=== PATIENT | male | born 1965 | race Caucasian/White ===

== ENCOUNTER 2018-09-27 23:04 | Inpatient (IN) | payer MEDICARE, MEDICAID ==
[~2018-09-27] VITALS: Ht 175.3 cm; Wt 89.5 kg
--- NOTE | ~2018-09-27 | MORECARE ---
CASE MANAGEMENT DISCHARGE SUMMARY PATIENT: REFUGIO NELSON UNIT: [id number] ADM DATE: 09/27/18 AGE: 53 : 67 SEX: M ROOM/BED: D.2209 AUTHOR: MILLYDOC PHYSICIAN: REFERRING PHYSICIAN: SEBAS ARREOLA MD DATE OF SERVICE: 10/03/18 Discharge Plan Patient Name: REFUGIO NELSON Facility: [facility]:[place] : 1965 Planned Disposition: Home Anticipated Discharge Date: Discharge Date: 10/01/2018 Expected LOS: 0 Initial Reviewer: [email or web address] Initial Review Date: 09/28/2018 Generated: 10/03/18 1:32 pm Comments DCP- Discharge Planning Updated by [email or web address]: Machelle Vigil on 09/30/18 10:[address] Patient Name: REFUGIO NELSON Admission Status: Elective Accout number: [id number] Admission Date: 09-27-2018 : 1965 Admission Diagnosis: Attending: SEBAS ARREOLA Current LOS: 3 Anticipated DC Date: Planned Disposition: Home Primary Insurance: [facility] MEDICARE SOLUTIONS Discharge Planning Comments: CM met with patient to assess discharge planning needs. He is a transfer for a higher level of care from [place]. He stated that he lives independently with his girlfriend where he plans to return at dc. He stated that he would have a ride home. He does have a nebulizer at home. He states his home is safe to return and denies any other needs at this time. CM will continue to follow and assist with dc planning as needed Screw Machine Adjuster Automatic: Machelle Vigil DCPIA - Discharge Planning Initial Assessment Updated by [email or web address]: Machelle Vigil on 09/30/18 11:34 am * Is the patient Alert and Oriented? Yes * How many steps to enter\exit or inside your home? * PCP TARA ([place]) * [facility] [place] * Preadmission Environment Home with Family * ADLs Independent * Equipment Nebulizer * List name and contact numbers for known caregivers / representatives who currently or will assist patient after discharge: MADISYN PARISH [phone] * Verbal permission to speak to the caregivers and representatives has been obtained from the patient. N/A * Community resources currently utilized None * Additional services required to return to the preadmission environment? No * Can the patient safely return to the preadmission environment? Yes * Has this patient been hospitalized within the prior 30 days at any hospital? No Last DP export: 09/30/18 10:41 Patient Name: REFUGIO NELSON Page 14646 at 1232 All edits/amendments must be made on the electronic document DICTATION DATE: 10/03/18 1231 TRANSITION COACH: ANGELINE 10/03/18 1231 RPT#: [id number] DC DATE:10/01/18 STATUS: DIS IN [facility] [address] [place] [address] END OF REPORT
--- NOTE | ~2018-09-27 | MORECARE ---
CASE MANAGEMENT DISCHARGE SUMMARY PATIENT: REFUGIO NELSON UNIT: [id number] ADM DATE: 09/27/18 AGE: 53 : 67 SEX: M ROOM/BED: D.2209 AUTHOR: MILLYDOC PHYSICIAN: REFERRING PHYSICIAN: SEBAS ARREOLA MD DATE OF SERVICE: 09/30/18 Discharge Plan Patient Name: REFUGIO NELSON Facility: [facility]:[place] : 1965 Planned Disposition: Home Anticipated Discharge Date: Discharge Date: Expected LOS: Initial Reviewer: [email or web address] Initial Review Date: 09/28/2018 Generated: 09/30/18 12:41 pm Comments DCP- Discharge Planning Updated by [email or web address]: Machelle Vigil on 09/30/18 10:[address] Patient Name: REFUGIO NELSON Admission Status: Elective Accout number: [id number] Admission Date: 09-27-2018 : 1965 Admission Diagnosis: Attending: SEBAS ARREOLA Current LOS: 3 Anticipated DC Date: Planned Disposition: Home Primary Insurance: [facility] MEDICARE SOLUTIONS Discharge Planning Comments: CM met with patient to assess discharge planning needs. He is a transfer for a higher level of care from [place]. He stated that he lives independently with his girlfriend where he plans to return at dc. He stated that he would have a ride home. He does have a nebulizer at home. He states his home is safe to return and denies any other needs at this time. CM will continue to follow and assist with dc planning as needed Ip Counsel: Machelle Vigil DCPIA - Discharge Planning Initial Assessment Updated by [email or web address]: Machelle Vigil on 09/30/18 11:34 am * Is the patient Alert and Oriented? Yes * How many steps to enter\exit or inside your home? * PCP [facility] ([place]) * Pharmacy [facility] [place] * Preadmission Environment Home with Family * ADLs Independent * Equipment Nebulizer * List name and contact numbers for known caregivers / representatives who currently or will assist patient after discharge: MADISYN PARISH [phone] * Verbal permission to speak to the caregivers and representatives has been obtained from the patient. N/A * Community resources currently utilized None * Additional services required to return to the preadmission environment? No * Can the patient safely return to the preadmission environment? Yes * Has this patient been hospitalized within the prior 30 days at any hospital? No Patient Name: REFUGIO NELSON Page [id number] at 1142 All edits/amendments must be made on the electronic document DICTATION DATE: 09/30/18 114 PLASTIC PRODUCTION MACHINE SETTER: ANGELINE 09/30/18 1141 RPT#: [id number] DC DATE: STATUS: ADM IN [facility] [address] [place] [address] END OF REPORT
[2018-09-27] MEDS ORDERED: DEPAKOTE500 MG PO (23:26)
[2018-09-27] MEDS ORDERED: PAXIL20 MG PO (23:37)
[2018-09-27] MEDS ORDERED: SEROQUEL25 MG PO (23:37)
[2018-09-27] MEDS ORDERED: IPRAT-ALBUT 0.5-3 ML UPD (23:40)
[2018-09-27] MEDS ORDERED: ALBUTEROL2.5 MG/3 M INH (23:40)
[2018-09-27] MEDS ORDERED: CARAFATE1 G PO (23:42)
[2018-09-27] MEDS ORDERED: GABAPENTIN100 MG PO (23:43)
[2018-09-28] VITALS: BP 114/84
[2018-09-28 01:21] VITALS: Ht 175.3 cm; Wt 89.5 kg
[2018-09-28 04:00] VITALS: BP 108/66
[2018-09-28 06:53] LABS: HEMATOCRIT 39.6 % (42.0-54.0); HEMOGLOBIN 12.9 g/dL (13.5-17.5); MCH 27.9 pg (26.0-34.0); MCHC 32.6 g/dL (31.0-37.0); MCV 85.5 fL (80.0-100.0); MEAN PLATELET VOLUME 10.6 fL (7.4-10.4); PLATELET COUNT 264 10x3/uL (130-400); RBC 4.63 10x6/uL (4.20-6.10); RDW 13.5 % (11.5-14.5); WBC 6.6 10x3/uL (4.8-10.8)
[2018-09-28 07:20] LABS: ALBUMIN 3.2 g/dL (3.4-5.0); ANION GAP 13.8 mmol/L (8-16); BILIRUBIN - TOTAL 0.49 mg/dL (0.2-1.3); CALCIUM 9.4 mg/dL (8.5-10.1); CARBON DIOXIDE 29.6 mmol/L (21.0-32.0); CREATININE - SERUM 1.4 mg/dL (0.6-1.3); POTASSIUM - SERUM 4.4 mmol/L (3.5-5.1); PROTEIN - SERUM 7.5 g/dL (6.4-8.2)
[2018-09-28 07:58] LABS: LYMPHOCYTES 13 % (15-50); MONOCYTES 7 % (2-11); NEUTROPHILS 80 % (40-80); PLATELET ESTIMATE NORMAL
[2018-09-28 08:30] VITALS: BP 108/65
[2018-09-28] MEDS ORDERED: SINGULAIR10 MG PO (11:12)
[2018-09-28] MEDS ORDERED: VOLTAREN75 MG PO (11:13)
[2018-09-28] MEDS ORDERED: ZYRTEC10 MG PO (11:14)
[2018-09-28] MEDS ORDERED: OMEPRAZOLE40 MG PO (11:15)
[2018-09-28] MEDS ORDERED: NORVASC5 MG PO (11:16)
[2018-09-28] MEDS ORDERED: PROSCAR5 MG PO (11:16)
[2018-09-28] MEDS ORDERED: ASPIRIN81 MG PO (11:17)
[2018-09-28 14:15] VITALS: BP 110/71
[2018-09-28 16:00] VITALS: BP 113/73
[2018-09-28 19:47] VITALS: BP 120/63
[2018-09-29] VITALS: BP 104/66; BP 133/71
[2018-09-29 04:02] VITALS: BP 119/77
[2018-09-29 07:31] LABS: BASOPHILS 0 % (0-2); EOSINOPHILS 0 % (0-7); HEMATOCRIT 36.6 % (42.0-54.0); HEMOGLOBIN 11.8 g/dL (13.5-17.5); IMMATURE GRANULOCYTES 0.3 % (0-5); LYMPHOCYTES 16.7 % (15-50); MCH 27.6 pg (26.0-34.0); MCHC 32.2 g/dL (31.0-37.0); MCV 85.7 fL (80.0-100.0); MEAN PLATELET VOLUME 10.5 fL (7.4-10.4); MONOCYTES 1.3 % (2-11); NEUTROPHILS 81.7 % (40-80); PLATELET COUNT 228 10x3/uL (130-400); RBC 4.27 10x6/uL (4.20-6.10); RDW 13.7 % (11.5-14.5)
[2018-09-29 07:54] LABS: ANION GAP 18.4 mmol/L (8-16); CALCIUM 8.6 mg/dL (8.5-10.1); CARBON DIOXIDE 22.8 mmol/L (21.0-32.0); CREATININE - SERUM 1.5 mg/dL (0.6-1.3); POTASSIUM - SERUM 4.2 mmol/L (3.5-5.1)
[2018-09-29 09:03] VITALS: BP 127/67
[2018-09-29 12:30] VITALS: BP 126/80
[2018-09-29 16:07] LABS: APPEARANCE CLEAR (CLEAR); COLOR YELLOW (YELLOW); GLUCOSE 1000 mg/dL (NEGATIVE); KETONE SMALL mg/dL (NEGATIVE); NITRITE NEGATIVE (NEGATIVE); PROTEIN NEGATIVE (NEGATIVE); UROBILINOGEN NORMAL (NORMAL)
[2018-09-29 16:08] LABS: BILIRUBIN NEGATIVE (NEGATIVE)
[2018-09-29 17:15] VITALS: BP 140/79
[2018-09-29 20:00] VITALS: BP 148/88
[2018-09-30 04:00] VITALS: BP 144/89
[2018-09-30 05:07] LABS: BASOPHILS 0 % (0-2); EOSINOPHILS 0 % (0-7); HEMATOCRIT 35.5 % (42.0-54.0); HEMOGLOBIN 11.5 g/dL (13.5-17.5); IMMATURE GRANULOCYTES 0.3 % (0-5); LYMPHOCYTES 6.9 % (15-50); MCH 27.4 pg (26.0-34.0); MCHC 32.4 g/dL (31.0-37.0); MCV 84.7 fL (80.0-100.0); MEAN PLATELET VOLUME 10.2 fL (7.4-10.4); MONOCYTES 3.8 % (2-11); PLATELET COUNT 229 10x3/uL (130-400); RBC 4.19 10x6/uL (4.20-6.10); RDW 13.8 % (11.5-14.5)
[2018-09-30 05:16] LABS: WBC 10.9 10x3/uL (4.8-10.8)
[2018-09-30 05:34] LABS: ANION GAP 13.7 mmol/L (8-16); CALCIUM 9.2 mg/dL (8.5-10.1); CREATININE - SERUM 1.2 mg/dL (0.6-1.3); POTASSIUM - SERUM 4.5 mmol/L (3.5-5.1)
[2018-09-30 05:42] LABS: CARBON DIOXIDE 28.8 mmol/L (21.0-32.0)
[2018-09-30 08:25] VITALS: BP 143/84
[2018-09-30 11:30] VITALS: BP 141/93
[2018-09-30 16:00] VITALS: BP 156/96
[2018-09-30 20:03] VITALS: BP 147/89
[2018-10-01] VITALS: BP 150/99
[2018-10-01 06:09] LABS: BASOPHILS 0 % (0-2); EOSINOPHILS 0 % (0-7); HEMATOCRIT 37.2 % (42.0-54.0); HEMOGLOBIN 12.1 g/dL (13.5-17.5); IMMATURE GRANULOCYTES 0.2 % (0-5); LYMPHOCYTES 10.1 % (15-50); MCH 27.8 pg (26.0-34.0); MCHC 32.5 g/dL (31.0-37.0); MCV 85.3 fL (80.0-100.0); MEAN PLATELET VOLUME 10.9 fL (7.4-10.4); MONOCYTES 3.3 % (2-11); NEUTROPHILS 86.4 % (40-80); PLATELET COUNT 253 10x3/uL (130-400); RBC 4.36 10x6/uL (4.20-6.10); RDW 14.1 % (11.5-14.5); WBC 8.9 10x3/uL (4.8-10.8)
[2018-10-01 06:35] VITALS: BP 157/98
[2018-10-01 06:35] LABS: ANION GAP 13.1 mmol/L (8-16); CALCIUM 9.5 mg/dL (8.5-10.1); CARBON DIOXIDE 32.5 mmol/L (21.0-32.0); CREATININE - SERUM 1.3 mg/dL (0.6-1.3); POTASSIUM - SERUM 4.6 mmol/L (3.5-5.1)
[2018-10-01 07:10] LABS: IMMUNOGLOBULIN A 334 mg/dL (90-386)
[2018-10-01 08:42] VITALS: BP 145/96
[2018-10-01 11:55] VITALS: BP 153/96
[2018-10-01 15:38] VITALS: BP 147/89
[2018-10-01] MEDS ORDERED: VIBRAMYCIN 100100 MG PO (16:12)
[2018-10-03 03:09] LABS: IGG SUBCLASS 1 805 mg/dL (248-810); IGG SUBCLASS 2 507 mg/dL (130-555); IGG SUBCLASS 3 59 mg/dL (15-102); IGG SUBCLASS 4 27 mg/dL (2-96); IMMUNOGLOBULIN G 1295 mg/dL (700-1600)
[2018-10-04 03:11] LABS: IMMUNOGLOBULIN E 1016 IU/mL (0-100)
== END 2018-10-01 16:59 | disposition home or self-care (01) | DRG 202 ==
LOC: D.MS 23:04
PROVIDERS: Internal Medicine Nephrology; Internal Medicine Pulmonary Disease
DX: J45.50 Severe persistent asthma, uncomplicated (principal); N17.9 Acute kidney failure, unspecified; Z77.22 Contact with and (suspected) exposure to environmental tobacco smoke (acute) (chronic); I10 Essential (primary) hypertension; K21.9 Gastro-esophageal reflux disease without esophagitis; R56.9 Unspecified convulsions; J20.9 Acute bronchitis, unspecified; E78.5 Hyperlipidemia, unspecified; N18.9 Chronic kidney disease, unspecified